=== PATIENT | male | born 1975 | race Caucasian/White ===

== ENCOUNTER 2019-04-01 06:00 | Outpatient (RCR) | payer BC, SELFPAY | END 2019-04-19 23:00 | disposition home or self-care (01) | LOC: GOT 06:00 | PROVIDERS: Family Provider Family Medicine; Visit Provider Family Medicine | DX: S42.001D Fracture of unspecified part of right clavicle, subsequent encounter for fracture with routine healing (principal); X58.XXXD Exposure to other specified factors, subsequent encounter; Z87.820 Personal history of traumatic brain injury | CPT/HCPCS: 97110 ×3 ==